=== PATIENT | female | born 1975 | race Two or more races ===

== ENCOUNTER 2019-04-16 07:53 | Outpatient (CLI) | payer OTHER | END 2019-04-16 23:59 | disposition home or self-care (01) | LOC: CFH 07:53 | PROVIDERS: ATTEND Obstetrics & Gynecology Gynecology | DX: Z12.31 Encounter for screening mammogram for malignant neoplasm of breast (principal); N64.89 Other specified disorders of breast | CPT/HCPCS: 77063; 77067 ==